=== PATIENT | female | born 1990 | race American Indian/Alaskan Native ===

== ENCOUNTER 2019-03-02 08:00 | Inpatient (IN) | payer OTHER ==
[2019-03-02 07:51] VITALS: BMI 36.8
[~2019-03-02 08:00] MED LIST: Sodium Citrate/Citric Acid 15 ml Sol ONE
[2019-03-02] MEDS ORDERED: Oxytocin 10 Units/ml Inj ONE ×2 (08:01→10:04)
[2019-03-02] MEDS ORDERED: Oxytocin 20 units in LR 2,000 ML IV ONE (08:01)
[2019-03-02] MEDS ORDERED: cefOXitin IV 2 gm in Dextrose 2 GM/50 ML BAG IVPB ONE ×2 (08:01→08:02)
[2019-03-02] MEDS ORDERED: Lactated Ringer's 1,000 ML IV ONE (08:02)
[2019-03-02] MEDS ORDERED: Sodium Citrate/Citric Acid 15 ml Sol PO ONE (08:02)
[2019-03-02 08:20] LABS: BASO % 0.6 % (0.0-2.0); EOS # 0.1 K/uL (0.0-0.7); EOS % 0.9 % (0.0-4.0); HEMOGLOBIN 10.2 g/dL (11.0-16.0); LYMPH # 2.4 K/uL (1.0-4.3); LYMPH % 29.9 % (20.0-40.0); MEAN CORPUSCULAR HEMOGLOBIN 26.4 pg (27.0-31.0); MEAN CORPUSCULAR HGB CONC 33.4 g/dL (33.0-37.0); MEAN PLATELET VOLUME 8.9 fL (7.2-11.7); MONO # 0.7 K/uL (0.0-0.8); MONO % 9.2 % (0.0-10.0); NEUT # 4.8 K/uL (1.8-7.0); NEUT % 59.4 % (50.0-75.0); NRBC % 0.1 % (0.0-2.0); RBC 3.87 Mil/uL (3.80-5.20); WHITE BLOOD COUNT 8.1 K/uL (4.8-10.8)
[2019-03-02 08:25] LABS: SQUAMOUS EPITHIAL 26 /hpf (0-5); URINE BACTERIA RARE (<OCC); URINE BILIRUBIN NEGATIVE (NEGATIVE); URINE BLOOD NEGATIVE (NEGATIVE); URINE CLARITY Hazy (Clear); URINE COLOR Yellow (YELLOW); URINE GLUCOSE (UA) NORMAL (Normal); URINE LEUKOCYTE ESTERASE TRACE Leu/uL (Negative); URINE PROTEIN NEGATIVE (NEGATIVE)
[2019-03-02 08:28] LABS: BLOOD UREA NITROGEN 12 mg/dL (7-17); CALCIUM 9.1 mg/dl (8.6-10.4); GFR NON-AFRICAN AMERICAN > 60
--- NOTE | 2019-03-02 09:31 | OBADHP ---
Datetime: 03/02/2019 08:13 Admit Comment, IP Provider: Patient is a 28 year old at 39wk KANWAL 03/09/19 by US who presented to the unit for a scheduled and bilateral tubal ligation. Patient started her car e at 30wks but states that she was taking vitamins on her own prior to seeking care. She end orses + FM, while denies vaginal bleeding, discharge or gush of fluid. She is accompanied by the baby 's father today. issues: Gestational Diabetes OB Hx: 1. 2011 primary @38wks, female 4lb oz, performed due to baby stopped g rowing - Thalassemia trait. 2. 2014 miscarrage 3. 2015 repeat @ 39wks, male 7lb 16oz 4. 2015 elective 5. Current ADMINISTRATIVE ACCOUNTANT hx LMP - May 2015 [facility] - 12 x irregular x 4 days Denies hx of abnormal paps, fibroids or STDs Allergies: NKDA Medications: PNV, Iron daily Medical History: denies Surgical History: x2, D+C (miscarrage) Social History: denies tobacco, alcohol or illicit drug use Family History: Mother - hypertension PE: see above A/P: Patient is a 28 year old at 39 wks who presents for repeat . - Admit to labor and delivery - Category I tracing - NST reactive - Admission labs, CBC, BMP, TS (2 units), UA - LR bolus - Cefoxitin 2 gm for pre-op ppx - Plan for repeat and bilateral tubal ligation - Procedure, risks and possible complications fully reviewed with patient and she verbalized under standing, requested to proceed and signed the consent. Will proceed when OR ready Case discussed with Dr. Trell Hartmann PGY2 Pt seen and examined with Dr. Hartmann and all of his findings and POC were fully discussed and agreed on. Extremities - PN: Normal Abdomen - PN: Normal Back - PN: Not Done Breast - PN: Not Done Lungs - PN: Normal Heart - PN: Normal Thyroid - PN: Not Done Neurologic - PN: Normal HEENT - PN: Normal General - PN: Normal FHR - Baseline A Provider: 135 Membranes, Provider: Loren Meeks, ACOG Physical Exam: Fundal Height at 40cm Gestation - Est Wks by US: 39.0 Vital Signs Provider: Reviewed IP Chief Complaint: Scheduled Section NICHD Variability Prov Fetus A: Moderate 6-25bpm NICHD Accel Fetus A IP Provider: 10X10 FHR Category Provider Fetus A: Category I NICHD Decel Fetus A IP Provider: None Genitourinary Exam: Not Done DTRs - PN: Not Done EGA AdmitDate IP: 39.0 IP Adm Impression: Term, intrauterine ; No Active Labor; Intact Membranes IP Admit Plan: Admit to unit; Initiate Section protocol
[2019-03-02] MEDS ORDERED: Morphine 1 mg/ml preservative-free Inj(Duramorph) ONE (10:04)
[2019-03-02] MEDS ORDERED: Lidocaine Hydrochloride 0 ML INJ ONE (10:19)
[2019-03-02] MEDS ORDERED: Oxycodone/Acetaminophen 5/325 mg Tab PO PRN (14:26)
[2019-03-02] MEDS: Simethicone 80 mg Chewtab PO SCH ×2 (17:49→22:06)
--- NOTE | 2019-03-02 20:53 | OBDS ---
DELIVERY PERSONNEL Delivery Doctor: Faustino Cai DO Scrub Nurse: Alecia Benítez Casino Porter: Jeri Anesthesiologist: Aaron Shaikh MD MATERNAL INFORMATION Delivery Anesthesia: Spinal Medications in Delivery: pitocin 20 units in 1000 mls of LR w/ added 20 untis of Pitocin Estimated Blood Loss (ml): 600 Maternal Complications: None Other Maternal Complications: previous c/s times 2, H/O sickle cell trait, late PNC, for BTL RN Comments: uneventful delivery of 39 wks IUP with BTL via repeat c/s to a viable baby boy with apg ars 9-9. Provider Comments: Repeat LTC C/S with delivery of a viable male from ALYSSIA position. Apgars 9 _9 and B/W 7lbs, 11oz. Cord Blood and Cord pH obtained and sent. Placenta with 3 vessel cord and sen t to Pathology. Multiple pelvic, tubal and ovarian adhesions Bilateral Tubal Ligation with Josselin tecnique and extreme difficulty secondary to adhesions. Portion of Right and Left Fallopian tubes sent to Pathology EBL 600 mls Pt and tolerated the procedure well and both remained in the LDR room in S_S condition Dr. Campa assisted throught the entire procedure from beginning to end. Dr. Chao attended the LABOR SUMMARY EDC: 03/09/2019 00:00 No. Babies in Womb: 1 Attempted: No Labor Anesthesia: Intrathecal LABOR INFORMATION Reason for Induction: Not Applicable Group B Beta Strep: Negative (Annotations: 02/11/2019) Steroids Given: None Reason Steroids Not Administered: Not Applicable MEMBRANES Membranes Rupture Method: Artificial Rupture of Membranes: 03/02/2019 10:51 Length of Rupture (hrs): 0.02 Amniotic Fluid Color: Bloody Amniotic Fluid Amount: Moderate Amniotic Fluid Odor: Normal STAGES OF LABOR Stage 3 hrs: 0 Stage 3 min: 2 CSECTION DELIVERY Primary Indication: Repeat Elective Other Primary Indication: Requesting Permanent Sterilization Secondary Indication: Other Other Secondary Indication: tubal ligation CSection Urgency: N/A CSection Incidence: Repeat Labor: N/A Elective: Elective CSection Incision: Lower Uterine Transverse Sterilization Procedure: Josselin BABY A INFORMATION Infant Delivery Date/Time: 03/02/2019 10:52 Method of Delivery: Born in Route : No : N/A Forceps: N/A Vacuum Extraction: N/A Shoulder Dystocia : No SHOULDER DYSTOCIA BABY A Delivery Date/Time: 03/02/2019 10:52 PRESENTATION/POSITION BABY A Presentation: Cephalic Cephalic Presentation: Vertex Vertex Position: Right Occipital Anterior Breech Presentation: N/A PLACENTA INFORMATION BABY A Placenta Delivery Time : 03/02/2019 10:54 Placenta Method of Delivery: Manual Removal Placenta Status: Delivered SCORES BABY A Heart Rate 1 min: >100 bpm Resp Effort 1 min: Good Cry Reflex Irritability 1 min: Cough or Sneeze or Pulls Away Muscle Tone 1 min: Active Motion Color 1 min: Body [place], Extremities Blue Resuscitation Effort 1 min: Tactile Stimulation SCORE 1 MIN: 9 Heart Rate 5 min: >100 bpm Resp Effort 5 min: Good Cry Reflex Irritability 5 min: Cough or Sneeze or Pulls Away Muscle Tone 5 min: Active Motion Color 5 min: Body [place], Extremities Blue Resuscitation Effort 5 min: N/A SCORE 5 MIN: 9 INFANT INFORMATION BABY A Gestational Age at Delivery: 39.0 Gestational Status: Term Infant Outcome : Liveborn Infant Condition : Stable Infant Sex: Male IDENTIFICATION/MEDS BABY A ID Band Number: [id number] ID Band Location: Left Leg; Left Arm Sensor Applied: Yes Sensor Number: [id number] Sensor Location : Cord Clamp WEIGHT/LENGTH BABY A Infant Birthweight (gms): 3490 Weight (lb): 7 Weight (oz): 11 Length Inches: 18.50 Infant Length cms: 47.0 CORD INFORMATION BABY A No. Cord Vessels: 3 Nuchal Cord : N/A Nuchal Cord Other: cord around body and shoulder True Knot: n/a Cord pH Baby Arterial: 7.10 Infant Cord pH Baby Venous: 7.30 Cord Blood Taken: Yes Banking/Donate Info: n/a Suction: Mouth; Nose ASSESSMENT BABY A Infant Complications: None Physical Findings at Delivery: Within Normal Limits Respirations: Appears Normal Sales Data Analyst/ALS Called : No Care By: dr chao and rudy dean Transferred To: Remains with Mother
[2019-03-03 08:09] LABS: MEAN CELL VOLUME 79.4 fL (81.0-99.0); MEAN CORPUSCULAR HEMOGLOBIN 26.5 pg (27.0-31.0); MEAN CORPUSCULAR HGB CONC 33.3 g/dL (33.0-37.0); MEAN PLATELET VOLUME 8.8 fL (7.2-11.7); RBC 2.99 Mil/uL (3.80-5.20); RED CELL DISTRIBUTION WIDTH 16.4 % (11.5-14.5)
[2019-03-03 08:30] LABS: WHITE BLOOD COUNT 13.3 K/uL (4.8-10.8)
[2019-03-03 08:31] LABS: HEMOGLOBIN 7.9 g/dL (11.0-16.0)
[2019-03-03] MEDS: Simethicone 80 mg Chewtab PO SCH ×4 (09:13→22:18)
[2019-03-03] MEDS: Prenatal Multivit/Folic Acid/Iron Tab PO SCH (09:14)
[2019-03-03] MEDS: Oxycodone/Acetaminophen 5/325 mg Tab PO PRN (12:15)
[2019-03-04 09:24] LABS: HEMOGLOBIN 8.7 g/dL (11.0-16.0); MEAN CELL VOLUME 79.8 fL (81.0-99.0); MEAN CORPUSCULAR HEMOGLOBIN 26.6 pg (27.0-31.0); MEAN CORPUSCULAR HGB CONC 33.4 g/dL (33.0-37.0); MEAN PLATELET VOLUME 8.8 fL (7.2-11.7); RBC 3.28 Mil/uL (3.80-5.20); RED CELL DISTRIBUTION WIDTH 16.9 % (11.5-14.5); WHITE BLOOD COUNT 15.2 K/uL (4.8-10.8)
[2019-03-04] MEDS: Simethicone 80 mg Chewtab PO SCH ×3 (10:34→22:19)
[2019-03-04] MEDS: Prenatal Multivit/Folic Acid/Iron Tab PO SCH (10:34)
--- NOTE | 2019-03-04 12:12 | OBPPN ---
Datetime: 03/04/2019 08:57 PP Pain Prov: Within normal limits PP Nausea Prov: Denies PP Flatus Prov: Yes PP BM Prov: Yes PP Breasts Prov: Not Done PP Heart Prov: Normal PP Lungs Prov: Normal PP Abdomen/Uterus Prov: Normal PP Lochia Prov: Normal PP Vulva/Perineum Prov: Not Done PP CVA Tenderness Prov: Not Done PP Extremities Prov: Normal PP C/S Incision Prov: Normal PP Comments Phys Exam Prov: VS: 120/76 101 99.0 Gen: NAD, pleasant, conversant CV: RRR, +s1,s2, no murmurs, rubs, gallops Lungs: CTA b/l no WRR Abd: soft, nondistended, tender to palpation, dressing c/d/i Fundal height: 2 FB below umbilicus Ext: nontender, nonedematous PP Impression Prov: Normal progression PP Plan Prov: Continue present management PP Progress Note Prov: Patient seen and examined at bedside. Per patient no acute overnight events. Diffuse abdominal pain is moderate at a 7-8/10 but tolerable and controlled with percocet and motrin. Lochia is bloody and minimal (2 pads). Patient is out of bed to chair and ambulating in the hallway. She is passing flatus and had a bowel movement yesterday. She denies straining. She is tolerating a regular diet and has a good appetite. She is breast and bottle feeding the baby. She is drinking 3-4 jugs of water per day.Denies fever, chills, dizziness, chest pain, SOB, n/v, and calf pain. VS: as reported above Physical exam: as reported above Labs: 4/3 AM lab - 8.1>10.2/30.6<325 4/4 AM lab - 13.3>7.9/23.7<233 B+ Rubella immune A/P: 28 year old s/p repeat with bilateral salpingectomy POD #2 -stable, afebrile -pain controlled with Motrin and percocet -encourage ambulation, hydration, -continue regular diet -continue routine post-operative care -if patient continues to progress well, plan for discharge POD3, tomorrow 4/6 Anel Wilson S-III Jeri Sahu PGY1 Pt seen at bedside. Agree with above. Continue post op care. IP PP Procedures: None Vital Signs Provider PP: Reviewed; Within Normal Limits Datetime: 03/03/2019 07:36 PP Progress Prov: Normal
[2019-03-04] MEDS: Oxycodone/Acetaminophen 5/325 mg Tab PO PRN (13:53)
[2019-03-05] MEDS: Simethicone 80 mg Chewtab PO SCH (09:20)
[2019-03-05] MEDS: Prenatal Multivit/Folic Acid/Iron Tab PO SCH (09:21)
[2019-03-05 09:36] VITALS: BP 111/76; PULSE 100; RESP 20; O2SAT 99
[2019-03-05 18:15] VITALS: TEMP 98
--- NOTE | 2019-03-09 10:54 | OBDCSUM ---
Datetime: 03/05/2019 07:52 Discharged to, Provider: Home Follow up at, Provider: 1 week Disch Instr Activity: Normal activity Disch Instr Diet: Regular Discharge Instructions, Provider: Routine instructions given Discharge Diagnosis, Provider: Term Delivered Discharge Time: 03/05/2019 07:52 Disch Referrals: None Contraception discussed, Prov: Yes Disch Activity Restrictions: No exercising; No lifting; No driving Discharge Comment, Provider: FOLLOW UP 1 WEEK FOR REMOVAL OF DINORA Signature: Payton BROWN
--- NOTE | 2019-03-10 00:27 | OP ---
PROCEDURE DATE: 03/02/2019 PREOPERATIVE DIAGNOSES: 1. Previous section x2. 2. History of sickle cell trait. 3. Late care. 4. Multiparity and requesting permanent sterilizations. POSTOPERATIVE DIAGNOSES: 1. Previous section x2. 2. History of sickle cell trait. 3. Late care. 4. Multiparity and requesting permanent sterilizations. 5. Multiple pelvic, tubal, and ovarian adhesions. PROCEDURE PERFORMED: 1. Repeat low transverse cervical section with delivery of a viable male from the ALYSSIA position with Apgars of 9 and 9 at one and five minutes respectively and weight of 7 pounds 11 ounces. 2. Lysis of multiple pelvic, tubal, and ovarian adhesions. 3. Bilateral tubal ligation with Josselin technique and extremely difficult secondary to multiple adhesions. The cord blood and cord pH were obtained and sent. A placenta with a three-vessel cord and sent to pathology. SPECIMEN: 1. As stated above, the placenta was sent to pathology. 2. Portion was divided in the left fallopian tube, that was also sent to pathology. 3. Cord blood and cord pH. ESTIMATED BLOOD LOSS: 100 mL. SURGEON: Diamond Cai DO BUSINESS DEVELOPMENT ASSISTANT: Pantera Campa MD ANESTHESIOLOGY: Amos Beltran MD CARGO TANK MECHANIC: Viridiana Tellez MD ANESTHESIA: Spinal. FINDINGS: As stated above, there were large number of multiple pelvic, tubal, and ovarian adhesions ____ the vagina was within normal limits, and bilateral tubes and ovaries were again very adherent to the ovary and making the tubal ligation procedure very difficult. COMPLICATIONS: None. PREOPERATIVE NOTE: The procedure, the risks and the possible complications were fully reviewed with the patient to include but not exclusively hemorrhage, infection or injury to bowel, bladder, bilateral tubes and ovaries, internal blood vessels or any other internal organs. The patient verbalized understanding and requested to proceed and signed the consent. The nature of the permanent sterilization procedure was also fully reviewed with the patient and she was made fully aware that this is considered a permanent procedure, not reversible, and with a known failure rate of 5 or 6 women in 1000 women who may still get despite any type of tubal ligation procedure performed. Once again, the patient verbalized understanding, requested to proceed and signed a consent. DESCRIPTION OF PROCEDURE: The patient was taken to the operating room and she was given a spinal form of anesthesia. She was sterilely prepped and draped in the usual manner for the above-named procedure. The time-out was then carried out as indicated and we initiated the procedure. After ascertaining an adequate level of anesthesia, the knife was utilized to make a low transverse skin incision following the previous scar and utilizing the Pfannenstiel technique, the abdomen was entered. The peritoneum was identified and was sharply entered. Some of the adhesions were then lysed in order to gain full access to the abdominal cavity, and the bladder flap was developed with some difficulty because of the multiple adhesions. This was placed underneath the [place] blade. The second knife was then utilized to make a low transverse uterine incision in the lower uterine segment and this was extended bilaterally in a transverse manner with bandage scissors. The membranes were ruptured with return of clear fluid and the infant was then delivered from the KAYCEE position. The bulb syringe was utilized to suction the naso and the oropharynx upon delivery of the head and upon completion of the delivery, which was carried out without difficulty. The cord was doubly clamped and transected, and the was passed to the clay processing factory worker in attendance for further inspection. The cord blood and cord pH were obtained and sent. The placenta was spontaneously delivered and sent to Pathology. The uterus was exteriorized through the abdominal incision after lysing somewhat of the adhesions, and the endometrial cavity was cleansed with a moist lap, and the uterine incision was closed utilizing 0 PDS suture in a full-thickness manner with an adequate closure and adequate hemostasis. At this time, we directed our attention to the tubal ligation procedure. The left fallopian tube was identified in its entirety from the cornua to the fimbriated end, and at approximately isthmic portion of the tube, a knuckle was made with a Sarina and it was double suture ligated and transected, and the portion of the tube was passed to be sent to Pathology. The endosalpinx was then cauterized and hemostasis was adequate. The same procedure was then repeated on the right side after identifying the tube in its entirety. Again, portion of the right fallopian tube was sent to Pathology. The cul-de-sac was cleansed of blood clots, and the uterus was repositioned in the abdominal cavity. Bilateral gutters were also cleansed, and after ascertaining adequate hemostasis at the fallopian tube systems and at the uterine incision, we proceeded to close the abdomen in layers. The rectus muscle was reapproximated in the midline with a few interrupted sutures of 0 Vicryl and incorporating the peritoneum. The fascia was closed with 0 PDS and the skin was closed with the ashley. The sterile dressing was applied, and after evacuating the vaginal blood clots, the procedure was terminated. All the instruments and sponges were accounted for x3, and the patient and the both tolerated the procedure well and they both left the operating room in a stable and satisfactory condition. Dr. Capma assisted throughout the entire procedure from the beginning to the end, and performed all the duties of an commercial loan assistant, retraction, suturing, transecting sutures. Diamond Cai DO
== END 2019-03-05 13:00 | disposition home or self-care (01) | DRG 651 ==
LOC: C.4D 08:00 → C.4M 15:45
PROVIDERS: ADMIT Obstetrics & Gynecology; ATTEND Obstetrics & Gynecology
PROC: 0UB70ZZ Excision of Bilateral Fallopian Tubes, Open Approach (ICD-10-PCS; principal; 2019-03-02)
PROC: 10D00Z1 Extraction of Products of Conception, Low, Open Approach (ICD-10-PCS; 2019-03-02)
DX: O24.429 Gestational diabetes mellitus in childbirth, unspecified control (principal); O34.211 Maternal care for low transverse scar from previous cesarean delivery; Z37.0 Single live birth; Z30.2 Encounter for sterilization; N73.6 Female pelvic peritoneal adhesions (postinfective); Z3A.39 39 weeks gestation of pregnancy; D57.3 Sickle-cell trait